=== PATIENT | female | born 1990 | race African-American/Black ===

== ENCOUNTER 2018-04-27 12:35 | Emergency (ER) | payer SELFPAY ==
[~2018-04-27] VITALS: Ht 167.6 cm; Wt 59.0 kg
[~2018-04-27 12:35] MED LIST: ATIVAN1 MG ORAL; BACTRIM DS TAB1 EAC1 ORAL
--- NOTE | 2018-04-27 13:27 | Emergency Room Report ---
History of Present Illness General Chief Complaint: Female Urogenital Problems Source: Patient Present Illness HPI 27-year-old female presents to the emergency department complaining of vaginal discharge with malodor and itching 2 days. Patient denies hematuria, dysuria, urinary frequency. Patient denies recent unprotected intercourse she denies . Patient denies pelvic tenderness, abdominal pain, nausea or vomiting. Patient does report intermittent lower back ache/cramping times one week. Patient describes her back pain as 5 out of 10 in severity and is dull in nature. She denies fevers or chills, swollen tender lymph nodes or joint pain. Denies recent abx use. Allergies: Coded Allergies: No Known Allergies (Unverified , 09/17/14) Patient History Past Medical History: see triage record Past Surgical History: none Pertinent Family History: none Last Menstrual Period: 04/05/18 Now: No Immunizations: UTD Reviewed Nursing Documentation: PMH: Agreed; PSxH: Agreed Nursing Documentation-PMH Past Medical History: No Stated History Review of Systems All Other Systems: negative except mentioned in HPI Physical Exam Vital Signs Date Time Temp Pulse Resp B/P (MAP) Pulse Ox O2 Delivery O2 Flow Rate FiO2 04/27/18 12:48 98.4 79 18 117/79 100 Room Air 98.4 Sp02 EP Interpretation: reviewed, normal General Appearance: no apparent distress, alert, GCS 15, non-toxic Head: normocephalic, atraumatic ENT: hearing grossly normal, normal voice Neck: full range of motion Respiratory: lungs clear, normal breath sounds, speaking full sentences Cardiovascular #1: regular rate, rhythm Gastrointestinal: normal bowel sounds, non tender, soft Rectal: deferred Genitourinary: normal inspection, no CVA tenderness, adnexa normal, cervix normal, ext genitalia/vag normal, os closed, other - creamy white d/c with some parts with thicker consistency as well, no CMT Musculoskeletal: back normal, gait/station normal, normal range of motion, non- tender Neurologic: alert, oriented x3, responsive, motor strength/tone normal, sensory intact, speech normal, grossly normal Psychiatric: judgement/insight normal Skin: normal color, no rash, warm/dry, well hydrated Lymphatic: no adenopathy Medical Decision Making PA Attestation Dr. Gottlieb is my supervising Physician whom patient management has been discussed with. Diagnostic Impression: Primary Impression: Vaginitis Qualified Codes: N76.0 - Acute vaginitis Additional Impression: Yeast vaginitis ER Course 27-year-old female presents to the emergency department complaining of vaginal discharge with malodor and itching 2 days. Patient denies hematuria, dysuria, urinary frequency. Patient denies recent unprotected intercourse she denies . Patient denies pelvic tenderness, abdominal pain, nausea or vomiting. Patient does report intermittent lower back ache/cramping times one week. Patient describes her back pain as 5 out of 10 in severity and is dull in nature. She denies fevers or chills, swollen tender lymph nodes or joint pain. Denies recent abx use. Ddx considered but are not limited to UTi , STI, G & C, trichomonas, Vaginitis , cervicitis, bartholins gland cyst or cellulitis. Vital signs: are WNL, pt. is afebrile H&PE are most consistent with vaginitis ORDERS: -UA: WNl -Urine HCG:Negative -Wet [place]: Positive for YEAST ED INTERVENTIONS: -Diflucan PO DISCHARGE: At this time pt. is stable for d/c to home. Will provide printed patient care instructions, and any necessary prescriptions. Care plan and follow up instructions have been discussed with the patient prior to discharge. Labs Test 04/27/18 13:00 Urine Color Pale yellow Urine Appearance Slightly cloudy Urine pH 6 (4.5-8.0) Urine Specific [place] 1.015 (1.005-1.035) Urine Protein Negative (NEGATIVE) Urine Glucose (UA) Negative (NEGATIVE) Urine Ketones Negative (NEGATIVE) Urine Occult Blood Negative (NEGATIVE) Urine Nitrite Negative (NEGATIVE) Urine Bilirubin Negative (NEGATIVE) Urine Urobilinogen Normal MG/DL (0.0-1.0) Urine Leukocyte Esterase 3+ (NEGATIVE) Urine RBC 0-2 /HPF (0 - 2) Urine WBC 5-10 /HPF (0 - 2) Urine Squamous Epithelial Cells Few /LPF (NONE/OCC) Urine Bacteria Few /HPF (NONE) Urine HCG, Qualitative Negative (NEGATIVE) Last Vital Signs Date Time Temp Pulse Resp B/P (MAP) Pulse Ox O2 Delivery O2 Flow Rate FiO2 04/27/18 12:48 98.4 79 18 117/79 100 Room Air 98.4 Disposition: HOME, SELF-CARE Condition: Stable Scripts Fluconazole (FLUCONAZOLE) 100 Mg Tablet 100 MG ORAL DAILY, #3 TAB 0 Refills Prov: Dai Pelayo 04/27/18 Metronidazole* (FLAGYL*) 500 Mg Tablet 500 MG ORAL BID, #14 TAB 0 Refills Prov: Dai Pelayo 04/27/18 Patient Instructions: Vaginitis Additional Instructions: Take medications as directed. Follow up with a OBGYN within 3 days, even if your symptoms have resolved. Return sooner to ED if new symptoms occur, or current symptoms become worse. - Please note that this Emergency Department Report was dictated using [employer] technology professor technology software, occasionally this can lead to erroneous entry secondary to interpretation by the dictation equipment. Dai Pelayo Apr 27, 2018 13:27
[2018-04-27 13:28] LABS: APPEARANCE,URINE SLIGHTLY CLOUDY; BILIRUBIN, URINE NEGATIVE (NEGATIVE); COLOR,URINE PALE YELLOW; GLUCOSE, URINE (UA) NEGATIVE (NEGATIVE); KETONES,URINE NEGATIVE (NEGATIVE); LEUKOCYTE ESTERASE ,URINE 3+ (NEGATIVE); NITRITE,URINE NEGATIVE (NEGATIVE); PH,URINE 6 (4.5-8.0); PROTEIN,URINE NEGATIVE (NEGATIVE); UROBILINOGEN,URINE NORMAL MG/DL (0.0-1.0)
[2018-04-27] MEDS ORDERED: Fluconazole 100mg tab ORAL ONE (13:30)
[2018-04-27 13:39] VITALS: BP 117/79
[2018-04-27] MEDS ORDERED: METRONIDAZOLE500 MG ORAL (14:44)
[2018-04-27] MEDS ORDERED: FLUCONAZOLE100 MG ORAL (14:44)
[2018-04-27 14:47] VITALS: BP 124/80
== END 2018-04-27 14:54 | disposition home or self-care (01) ==
LOC: EMR 13:18
DX: B37.3 Candidiasis of vulva and vagina (principal)
CPT/HCPCS: 81003; 81025; 87210; 99283